=== PATIENT | male | born 2005 | race Caucasian/White ===

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

== ENCOUNTER 2025-11-01 08:08 | Outpatient (CLI) | payer OTHER, SELFPAY ==
[2025-11-01 14:43] LABS: Coronavirus 19, PCR Not Detected (NotDetected); Influenza A, PCR Not Detected (NotDetected); Influenza B, PCR Not Detected (NotDetected)
[2025-11-01 17:12] LABS: Hepatitis C Ab Qual. W/ RFX NEGATIVE (Negative)
--- OUTSIDE RECORDS SUMMARY | 2025-11-02 08:10 | XMS_ITS | Clinical Summary ---
Author Organization Healthcare Address [address] [place] [address] Care Team Providers Care Online Content Coordinator Name Role Phone Martin Valle MD Primary Care Provider [phone] Family History Medical History Relation Name Comments Conversions - Other Father Prediabe claudy Hypertension Father Coronary artery disease Maternal Grandfather Conversions - Other Mother No known health problems Relation Name Status Comments Father Maternal Grandfather Mother Social History Tobacco Use Types Packs/Day Years Used Date Smoking Tobacco: Passive Smo ke Exposure - Never Smoker Sex and Gender Information Value Date Recorded Sex Assigned at Not on file Legal Sex Male 7:46 PM EDT Gender Identity Not on file Sexual Orientation Not on file Last Filed Vital Signs Vital Sign Reading Time Taken Comments Blood Pressure 126/72 11/13/2020 8:40 AM EST Pulse 61 11/13/2020 8:40 AM EST Temperature - - Respiratory Rate 18 11/13/2020 8:40 AM EST Oxygen Saturation - - Inhaled Oxygen Concentration - - Weight 68.8 kg (151 lb 9.1 oz) 11/13/2020 8:40 A M EST Height 170 cm (5' 6.93 ) 11/13/2020 8:40 AM EST Body Mass Index 23.79 11/13/2020 8:40 AM EST Body Mass Index Percentile 87.00% 11/13/2020 8:4 0 AM EST Growth Chart: CDC (Boys, 2-2 0 Years) Plan of Treatment Health Maintenance Due Date Last Done Comments [facility]-Depression Screening 2005 [facility]-/Child/Adol SDOH Screenings 2005 Fluoride Varnish 08/04/2006 [facility]-Varicella Vaccines (1 of 2 - 13+ 2-dose series) 2018 HPV Vaccines (1 - Male 3-dos e series) 2020 [facility]- SDOH Screenings 2023 [facility]-Adult SDOH Screenings 2023 [facility]-DTaP,Tdap,and Td Vaccine s (1 - Tdap) 2024 [facility]-Hepatitis B Vaccines (1 of 3 - 19+ 3-dose series) 2024 [id number] Vaccine (1 - 20 25-26 season) 2025 [facility]-Influenza Vaccine (#1) 2025 [facility]-Zoster Vaccines (1 of 2) 2055 [facility]-HIB Vaccines Aged Out No longer e ligible based on patient's age to complete this topic [facility]-Hepatitis A Vaccines Aged Out No longer eligible based on patient's age to complete this topic [facility]-IPV Vaccines Aged Out No longer e ligible based on patient's age to complete this topic [facility]-Pneumococcal Vaccine: Pediatrics (0 to 5 Years) and At-Risk Patients (6 to 49 Years) Aged Out No long er eligible based on patient's age to complete this topic [facility]-Rotavirus Vaccines Aged Out No lo nger eligible based on patient's age to complete this topic Care Teams Online Content Coordinator Relationship Specialty Start Date End Date Martin Valle MD [facility] [place] [address] PCP - General 03/15/21
--- OUTSIDE RECORDS SUMMARY | 2025-11-02 08:10 | XMS_ITS ---
Author Organization Unknown ENCOUNTERS Encounter Performer Location Date Diagnosis Diagnosis Status Pre Admit [address] [place] [address] [id number] Emergency [address] [place] [address] [id number] [facility] Emergency [place] [address] [place] [address] [id number] [place] Pre Admit [address] [facility] [place] [address] [id number] Pre Admit [address] [place] [address] [id number] Emergency [address] [place] [address] [id number] SHARON *Note: Encounters from your own facility or health system may be excluded. Allergies, Adverse Reactions, Alerts Allergen Type Severity Identification Date Medications Name Date Quantity Days Supplied GPI Number
[2025-11-04 03:49] LABS: Hepatitis B Surface Antigen Negative (Negative)
== END 2025-11-01 23:59 | disposition home or self-care (01) ==
LOC: LAB.DROPOF 11-02 08:09
PROVIDERS: PCP Family Medicine; Visit Provider Nurse Practitioner
DX: J06.9 Acute upper respiratory infection, unspecified (principal); Z11.59 Encounter for screening for other viral diseases
CPT/HCPCS: 86803; 87340; 87389; 87631